=== PATIENT | female | born 1965 | race Caucasian/White ===

== ENCOUNTER 2016-07-07 08:06 | Emergency (ER) | payer BC ==
[2016-07-07] MEDS ORDERED: Sodium Chloride 0.9% 1,000 ML IV ONE (08:30)
[2016-07-07 08:32] VITALS: BP 97/58
--- NOTE | 2016-07-07 17:57 | ER ---
HISTORY OF PRESENT ILLNESS: A 51-year-old lady who comes in from the [facility] where she is working today. She has been sick for a couple of days. The patient became very weak at work today and sat down quite suddenly. Her co-worker brought her over here, states that she was not answering questions for about a minute. She was awake. She was not shaking or having any obvious signs of seizures. Then, the patient started to respond and complained that she is very tired. A blood sugar was checked at [facility] that was around 120. The patient states that she has not felt good for the last couple of days with flu-like symptoms. She has been tired. She has had some coughing. She has not been eating or drinking as much as normal, but she thought she was good enough to go to work today. OBJECTIVE: GENERAL APPEARANCE: The patient is awake and alert. She is in no obvious respiratory distress. She does look pale. VITAL SIGNS: Show a blood pressure initially of 97/58, the patient is afebrile, O2 sats are 96% on room air, respirations are 12, pulse is 69. HEENT: Ears and TMs are normal. Nares are patent. Oral mucous membranes are dry. Tonsils not enlarged or injected. Pharynx not inflamed. NECK: Supple. LUNGS: Clear. CARDIAC: Heart sounds distinct without murmurs. SKIN: Warm and dry. ABDOMEN: Soft. No obvious tenderness with palpation. Bowel sounds are present. No lower extremity edema noted. INITIAL TREATMENT PLAN: An IV was started. 1 L of normal saline was given as a bolus. LABORATORY DATA: Labs done today include a CBC showing elevated monos, a normal white count. CMP shows a blood glucose of 118. Electrolytes and kidney function are okay. UA shows a small amount of proteinuria and a moderate amount of occult blood with a few bacteria. DIAGNOSIS: Viral illness with dehydration. TREATMENT PLAN: The patient felt much better after receiving the IV fluids. Her blood pressure was rechecked with a reading of 125/73. The patient was able to ambulate to the bathroom without any unsteadiness or dizziness. 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 The patient is to rest, push fluids, and take the next couple of days off work. Followup should be early next week in the clinic, if her symptoms are not improving or resolving, sooner of course in the emergency room if her condition should get worse. CRS/MODL /[id number]
--- NOTE | 2016-07-08 21:05 | CR ---
DATE OF SERVICE: 07/07/2016 CLINICAL DATA: Unresponsive episode. Cough. PORTABLE AP CHEST No priors. The heart size is normal. The lungs are clear. No pneumothorax. No pleural effusions. No areas of consolidation. IMPRESSION: NO EVIDENCE OF ACUTE INTRATHORACIC DISEASE. [id number] [facility]
== END 2016-07-07 10:00 | disposition home or self-care (01) ==
LOC: LB.ED 08:06
DX: B34.9 Viral infection, unspecified (principal); E86.0 Dehydration
CPT/HCPCS: 36415; 71010; 80053; 81001; 83735; 85025; J7040; 96360; 99284-25